=== PATIENT | female | born 1960 | race Two or more races ===

== ENCOUNTER 2018-12-02 07:10 | Emergency (ER) | payer MEDICAID ==
[~2018-12-02] VITALS: Ht 157.5 cm; Wt 83.1 kg
[2018-12-02 08:49] VITALS: BP 118/55
== END 2018-12-02 10:07 | disposition home or self-care (01) ==
LOC: ED 10:06
DX: B35.4 Tinea corporis (principal); L50.9 Urticaria, unspecified
CPT/HCPCS: 36415; 80053; 85025; 85651; 86140; 99284; J7512; Q0177

== ENCOUNTER 2019-06-09 07:26 | Emergency (ER) | payer SELFPAY ==
[~2019-06-09] VITALS: Ht 157.5 cm; Wt 85.3 kg
[2019-06-09 07:30] VITALS: BP 147/76
[2019-06-09] MEDS ORDERED: FLUORESCEIN OPHTHALMIC 1 MG STRIP ONE (07:57)
[2019-06-09] MEDS ORDERED: PROPARACAINE OPHTH 0.5%, 15ML ONE (07:58)
--- NOTE | 2019-06-09 08:12 | NUR ---
DR OCAMPO AT BEDSIDE. EYE EXAM DISCUSSED AND QUESTIONS ANSWERED. DR OCAMPO TO CONSULT WITH OPTHALMOLOGY. PT AWARE.
--- NOTE | 2019-06-09 08:35 | NUR ---
dr vance spoke with dr friedman
--- NOTE | 2019-06-09 08:57 | NUR ---
Patient/Caregiver given discharge instructions and they have confirmed that they understand the instructions. Patient ambulatory with steady gait.
== END 2019-06-09 08:58 | disposition home or self-care (01) ==
LOC: ED 07:47
DX: S05.02XA Injury of conjunctiva and corneal abrasion without foreign body, left eye, initial encounter (principal); X58.XXXA Exposure to other specified factors, initial encounter; Y93.89 Activity, other specified; Y92.89 Other specified places as the place of occurrence of the external cause; Y99.8 Other external cause status
CPT/HCPCS: 99283

== ENCOUNTER 2019-08-30 12:57 | Emergency (ER) | payer SELFPAY ==
[~2019-08-30] VITALS: Ht 157.5 cm; Wt 83.2 kg
[2019-08-30 13:03] VITALS: BP 110/70
--- NOTE | 2019-08-30 13:23 | NUR ---
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
--- NOTE | 2019-08-30 13:30 | NUR ---
Assumed care of patient. 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 Bleeding controlled. NAD. Daughter at bedside. Will continue to monitor.
[2019-08-30] MEDS ORDERED: MICROFIBRILLAR COLLAGEN 1 GM TP ONE (13:47)
[2019-08-30] MEDS ORDERED: DIPH,PERTUSS(ACELL),TET VAC/PF 0.5 ML IM-VACC ONE ×2 (14:00→14:03)
[2019-08-30] MEDS ORDERED: MICROFIBRILLAR COLLAGEN 0.5GM/PACK TP ONE (14:00)
--- NOTE | 2019-08-30 14:33 | NUR ---
Patient/Caregiver given discharge instructions and they have confirmed that they understand the instructions. Patient ambulatory with steady gait.
== END 2019-08-30 14:35 | disposition home or self-care (01) ==
LOC: ED 14:10
DX: S91.215A Laceration without foreign body of left lesser toe(s) with damage to nail, initial encounter (principal); W26.8XXA Contact with other sharp object(s), not elsewhere classified, initial encounter; Y93.89 Activity, other specified; Y92.89 Other specified places as the place of occurrence of the external cause; Y99.0 Civilian activity done for income or pay
CPT/HCPCS: 90471; 90715; 99283

== ENCOUNTER 2020-07-25 13:14 | Emergency (ER) | payer SELFPAY ==
[~2020-07-25] VITALS: Ht 162.6 cm; Wt 88.0 kg
[2020-07-25 13:20] VITALS: BP 128/66
--- NOTE | 2020-07-25 13:39 | NUR ---
PT BIB DAUGHTER VIA POV. PT STATES SHE HAD "BAD SUSHI" 3 DAYS AGO AND HAD DIARRHEA X3 DAYS, BUT IS ASYMPTOMATIC TODAY. SHE STATES SHE NEEDS A WORK NOTE TO GO BACK TO WORK SINCE SHE CALLED IN THE LAST THREE DAYS. PT RESTING IN [facility], MONITORING IN PLACE, PT STATES NO PAIN OR NEEDS AT THIS TIME, NADN AT THIS TIME, WCTM.
== END 2020-07-25 14:27 | disposition home or self-care (01) ==
LOC: ED 14:05
DX: Z00.8 Encounter for other general examination (principal); R19.7 Diarrhea, unspecified
CPT/HCPCS: 99281